=== PATIENT | male | born 1980 ===

== ENCOUNTER 2017-03-13 12:48 | Observation (INO) | payer OTHER ==
[2017-03-13] MEDS ORDERED: Iohexol 240 (50 ml) PO STA (13:26)
[2017-03-13] MEDS ORDERED: Sodium Chloride 0.9% 1,000 ML IV STA (13:31)
[2017-03-13] MEDS ORDERED: Iohexol 240 (50 ml) ONE (13:35)
--- NOTE | 2017-03-13 13:49 | ED PDOC ---
HPI: Abdomen Time Seen by Provider: 03/13/17 13:04 Chief Complaint (Nursing): Abdominal Pain Chief Complaint (Provider): Abdominal Pain History Per: Patient History/Exam Limitations: no limitations Outside of [place] travel?: No Current Symptoms Are (Timing): Still Present Additional Complaint(s): Efrain Vaughan, a 36 year old female, presenting with abdominal pain x1 month. The patient reports that he had bloody diarrhea 2 weeks ago but that has resolved. The patient states that he felt a subjective fever that has also. Denies current nausea and vomiting. He further states that he was seen at [facility] 2 weeks ago, he says he was sent for a H-pylori test but his matt care ran out so he came here instead. Past Medical History Reviewed: Historical Data, Nursing Documentation, Vital Signs Vital Signs: Last Vital Signs Temp 98.0 F 03/13/17 19:21 Pulse 72 03/13/17 19:21 Resp 16 03/13/17 19:21 BP 130/71 03/13/17 19:21 Pulse Ox 100 03/13/17 19:21 - Medical History PMH: No Chronic Diseases - Family History Family History: States: Unknown Family Hx - Social History Current smoker - smoking cessation education provided: No Alcohol: None - Home Medications Home Medications: Ambulatory Orders Medication Instructions Recorded Ciprofloxacin HCl [Cipro] 500 mg PO BID #20 tab 03/13/17 Dicyclomine [Dicyclomine HCl] 10 mg PO Q8 #10 cap 03/13/17 Metronidazole [Flagyl] 500 mg PO TID #30 tablet 03/13/17 - Allergies Allergies/Adverse Reactions: Allergies Allergy/AdvReac Type Severity Reaction Status Date / Time Penicillins AdvReac ANAPHYLAXIS Verified 03/13/17 12:57 Review of Systems ROS Statement: Except As Marked, All Systems Reviewed And Found Negative Constitutional: Negative for: Fever Gastrointestinal: Positive for: Abdominal Pain, Diarrhea. Negative for: Nausea , Vomiting Physical Exam - Reviewed Nursing Documentation Reviewed: Yes Vital Signs Reviewed: Yes - Physical Exam Appears: Positive for: Non-toxic, No Acute Distress Head Exam: Positive for: ATRAUMATIC, NORMAL INSPECTION, NORMOCEPHALIC Skin: Positive for: Normal Color, Warm, Dry Eye Exam: Positive for: Normal appearance, EOMI, PERRL ENT: Positive for: Normal ENT Inspection Neck: Positive for: Normal, Painless ROM, Supple Cardiovascular/Chest: Positive for: Regular Rate, Rhythm, Chest Non Tender. Negative for: Tachycardia Respiratory: Positive for: Normal Breath Sounds. Negative for: Wheezing, Respiratory Distress Gastrointestinal/Abdominal: Positive for: Bowel Sounds, Soft, Tenderness ( Generalized tenderness mostly in left upper quadrant.) Back: Positive for: Normal Inspection Extremity: Positive for: Normal ROM. Negative for: Tenderness, Deformity, Swelling Neurologic/Psych: Positive for: Alert, Oriented, Gait - Laboratory Results Result Diagrams: 03/13/17 12:30 03/13/17 12:30 - ECG O2 Sat by Pulse Oximetry: 98 (RA) Pulse Ox Interpretation: Normal - CT Scan/US CT abd/pelvis Other Rad Studies (CT/US): Radiology Report Reviewed (Hepatomegaly. Moderate fatty hepatic infiltration. Questionable mild localized enteritis involving 1 or 2 loops of proximal. Diverticulosis. Mild diverticulitis not excluded. There are few colonic diverticula diverticula along the distal sigmoid with some mild wall thickening and hazy appearance of the adjacent mesenteric. Findings also suggest a mild diverticulitis as well.) Medical Decision Making Medical Decision Makin:04 Initial Impression: 36 year old female presenting with abdominal pain Initial Plan: * CT ABD&PELVI PO & IV contrast * Comp Metabolic Panel * Udip * CBC * PTT * Prothrombin time * NS 1000mls IV 1000mls/hr * Omnipaque 50ml PO * Admit 13:30 * Urinalysis * Reevaluation Scribe Attestation Documented by Mirna Whittaker acting as a scribe for Kim Fuentes MD. Provider Attestation: All medical record entries made by the Scribe were at my direction and personally dictated by me. I have reviewed the chart and agree that the record accurately reflects my personal performance of the history, physical exam, medical decision making, and the department course for this patient. I have also personally directed, reviewed, and agree with the discharge instructions and disposition. Disposition - Clinical Impression Clinical Impression: Diverticulitis - Disposition Disposition Time: 19:11 Condition: STABLE
[2017-03-13 13:50] LABS: BASO % 0.5 % (0.0-2.0); EOS # 0.1 K/uL (0.0-0.7); EOS % 1.3 % (0.0-4.0); HEMATOCRIT 45.6 % (35.0-51.0); LYMPH # 1.5 K/uL (1.0-4.3); LYMPH % 29.1 % (20.0-40.0); MEAN CELL VOLUME 83.8 fl (80.0-94.0); MEAN CORPUSCULAR HEMOGLOBIN 28.2 pg (27.0-31.0); MEAN CORPUSCULAR HGB CONC 33.6 g/dL (33.0-37.0); MEAN PLATELET VOLUME 8.1 fl (7.2-11.7); MONO # 0.4 K/uL (0.0-0.8); MONO % 6.6 % (0.0-10.0); NEUT # 3.3 K/uL (1.8-7.0); NEUT % 62.5 % (50.0-75.0); RED CELL DISTRIBUTION WIDTH 13.2 % (11.5-14.5); WHITE BLOOD COUNT 5.3 K/uL (4.8-10.8)
[2017-03-13 13:56] LABS: ALB/GLOB RATIO 1.4 (1.0-2.1); ALKALINE PHOSPHATASE 79 U/L (38-126); ALT/SGPT 82 U/L (21-72); AST/SGOT 32 U/L (17-59); BILIRUBIN,TOTAL 0.6 mg/dl (0.2-1.3); BLOOD UREA NITROGEN 12 mg/dl (9-20); CALCIUM 9.1 mg/dL (8.4-10.2); CARBON DIOXIDE 24 mmol/L (22-30); CHLORIDE 106 mmol/L (98-107); GFR AFRICAN-AMERICAN > 60; GLUCOSE,RANDOM 97 mg/dL (75-110); POTASSIUM 4.1 MMOL/L (3.6-5.0); SODIUM 141 mmol/l (132-148); TOTAL PROTEIN 7.9 G/DL (6.3-8.2)
[2017-03-13 13:57] LABS: RBC URINE 3 /hpf (0-3); URINE BACTERIA RARE (<OCC); URINE BILIRUBIN NEGATIVE (NEGATIVE); URINE BLOOD NEGATIVE (NEGATIVE); URINE COLOR YELLOW (YELLOW); URINE GLUCOSE (UA) NEG (Normal); URINE KETONE NEGATIVE (NEGATIVE); URINE LEUKOCYTE ESTERASE NEG Leu/uL (Negative); URINE PROTEIN NEGATIVE (NEGATIVE); URINE UROBILINOGEN 0.2-1.0 mg/dL (0.2-1.0); WBC URINE < 1 /hpf (0-5)
[2017-03-13 14:12] LABS: PARTIAL THROMBOPLASTIN TIME 31.7 Seconds (25.6-37.1)
--- NOTE | 2017-03-13 18:31 | CT ---
PROCEDURE: CT abdomen pelvis dated 03/13/2017. HISTORY: Chronic diarrhea COMPARISON: No prior TECHNIQUE: Contiguous axial images of the abdomen and pelvis. Oral contrast was administered. No IV contrast given. Coronal and Sagittal reformats generated. Radiation dose: Total exam DLP = 860.3 mGy-cm. This CT exam was performed using one or more of the following dose reduction techniques: Automated exposure control, adjustment of the mA and/or kV according to patient size, and/or use of iterative reconstruction technique. FINDINGS: LOWER THORAX: Lung bases clear. No infiltrate effusion or basilar pneumothorax. Tiny hiatal hernia. Heart size within range of normal. LIVER: Liver is mobile on mildly enlarged measuring nearly 19 cm in CC dimension. Mild to moderate fatty hepatic infiltration. No obvious hepatic mass or collection seen on this exam. Portal and splenic veins are opacified. . GALLBLADDER AND BILE DUCTS: Gallbladder is physiologically distended. No evidence of intraluminal gallbladder calculi. PANCREAS: The pancreas appears grossly unremarkable without mass collection or calcification. No significant pancreatic ductal dilatation. SPLEEN: Spleen exhibits normal size and attenuation. ADRENALS: No adrenal lesions. KIDNEYS AND URETERS: Kidneys demonstrate symmetric nephrograms. No evidence of nephrolithiasis or hydronephrosis. No obvious renal mass or collection. BLADDER: Urinary bladder is incompletely distended which may account for slight thick-walled appearance. Muscular hypertrophy may contribute. REPRODUCTIVE: Prostate gland measures approximately 4.4 cm in transverse dimension. APPENDIX: Normal-appearing appendix best seen on coronal image number [id number]. BOWEL: Evaluation of the bowel is somewhat limited due to incomplete opacification. The stomach is incompletely distended which presumably accounts for slight thick-walled appearance. Gastritis not excluded. Visualized loops of small bowel exhibit normal contour and caliber however there is some mild wall thickening of a few loops of proximal small bowel in the upper/mid and left abdomen that contain fluid. The possibility of a mild localized enteritis not excluded. Clinical correlation recommended. No evidence of acute mechanical bowel obstruction. Oral contrast material is present within the colon to the level of the proximal descending colon. . There are few colonic diverticula along the sigmoid colon with mild wall thickening in hazy appearance of the adjacent mesenteric. Findings also suggest concomitant mild diverticulitis. PERITONEUM: Unremarkable. No fluid collection. No free air. Tiny fat containing left inguinal hernia. LYMPH NODES: Unremarkable. No enlarged lymph nodes. VASCULATURE: Unremarkable. No aortic aneurysm. BONES: Minor degenerative spondylosis involving the lower thoracic and lumbar spine. OTHER FINDINGS: None. IMPRESSION: Hepatomegaly. Moderate fatty hepatic infiltration. Questionable mild localized enteritis involving 1 or 2 loops of proximal Diverticulosis. Mild diverticulitis not excluded. There are few colonic diverticula diverticula along the distal sigmoid with some mild wall thickening and hazy appearance of the adjacent mesenteric. Findings also suggest a mild diverticulitis as well.
--- NOTE | 2017-03-13 19:10 | ED PDOC ---
- Laboratory Results Result Diagrams: 03/13/17 12:30 03/13/17 12:30 - ECG O2 Sat by Pulse Oximetry: 98 (RA) Disposition - Clinical Impression Clinical Impression: Diverticulitis - POA Present On Arrival: None - Disposition Disposition: Routine/Home Disposition Time: 19:10 Condition: FAIR
[2017-03-13 19:22] VITALS: BP 130/71; PULSE 72; RESP 16; TEMP 98
[2017-03-22 15:42] VITALS: O2SAT 98
== END 2017-03-13 19:22 | disposition home or self-care (01) ==
LOC: H.ER 12:48 → H.EROBSV 13:30
PROVIDERS: ADMIT Emergency Medicine; ATTEND Emergency Medicine
DX: K57.92 Diverticulitis of intestine, part unspecified, without perforation or abscess without bleeding (principal)
CPT/HCPCS: 74177; 80053; 81003; 85025; 85610; 85730; 99282; G0378; J7040; Q9966

== ENCOUNTER 2017-06-30 15:05 | Emergency (ER) | payer OTHER ==
[2017-06-30 15:11] VITALS: BP 138/83; PULSE 93; RESP 16; TEMP 98.1; O2SAT 96
--- NOTE | 2017-06-30 16:56 | ED PDOC ---
Lower Extremity Pain/Injury Time Seen by Provider: 06/30/17 15:31 Chief Complaint (Nursing): Lower Extremity Problem/Injury Chief Complaint (Provider): Right foot pain History Per: Patient History/Exam Limitations: no limitations Onset/Duration Of Symptoms: Days Current Symptoms Are (Timing): Still Present Additional History Per: Patient Additional Complaint(s): Patient presents today with complaints of right foot pain, present for the past week, starting after a heavy set man stepped on the patient's right foot. He denies any numbness or tingling to the extremity. Patient states he has been able to ambulate but has pain while moving. He offers no other medical complaints. Past Medical History Reviewed: Historical Data, Nursing Documentation, Vital Signs Vital Signs: Last Vital Signs Temp 98.1 F 06/30/17 15:09 Pulse 93 H 06/30/17 15:09 Resp 16 06/30/17 15:09 BP 138/83 06/30/17 15:09 Pulse Ox 96 06/30/17 15:09 - Medical History PMH: No Chronic Diseases - Surgical History Surgical History: No Surg Hx - Family History Family History: States: No Known Family Hx - Home Medications Home Medications: Ambulatory Orders Medication Instructions Recorded Ciprofloxacin HCl [Cipro] 500 mg PO BID #20 tab 03/13/17 Dicyclomine [Dicyclomine HCl] 10 mg PO Q8 #10 cap 03/13/17 Metronidazole [Flagyl] 500 mg PO TID #30 tablet 03/13/17 Naproxen [Naprosyn] 500 mg PO BID PRN #30 tab 06/30/17 - Allergies Allergies/Adverse Reactions: Allergies Allergy/AdvReac Type Severity Reaction Status Date / Time Penicillins AdvReac ANAPHYLAXIS Verified 03/13/17 12:57 Review of Systems ROS Statement: Except As Marked, All Systems Reviewed And Found Negative Musculoskeletal: Positive for: Foot Pain Neurological: Negative for: Weakness, Numbness Physical Exam - Reviewed Nursing Documentation Reviewed: Yes Vital Signs Reviewed: Yes - Physical Exam Appears: Positive for: Non-toxic, No Acute Distress Neck: Positive for: Supple Respiratory: Negative for: Respiratory Distress Pulses-Dorsalis Pedis (R): 2+ Extremity: Positive for: Tenderness (tenderness to dorsum of right foot), Capillary Refill (<2 seconds). Negative for: Deformity, Swelling Neurologic/Psych: Positive for: Alert, Oriented - ECG O2 Sat by Pulse Oximetry: 96 (RA) Pulse Ox Interpretation: Normal - Radiology X-Ray: Interpreted by Me (Foot x-ray) X-Ray Interpretation: No Acute Disease Medical Decision Making Medical Decision Making: Time: 1547 Impression: Right foot injury Plan: -- XR Right foot Reassess Scribe Attestation: Documented by Arabella Hoyt acting as a scribe for CRISTOFER Vazquez Provider Attestation: All medical record entries made by the Scribe were at my direction and personally dictated by me. I have reviewed the chart and agree that the record accurately reflects my personal performance of the history, physical exam, medical decision making, and the department course for this patient. I have also personally directed, reviewed, and agree with the discharge instructions and disposition. Disposition - Clinical Impression Clinical Impression: Foot contusion - Patient ED Disposition Is Patient to be Admitted: No - Disposition Referrals: Podiatry Clinic [Outside] Disposition: Routine/Home Disposition Time: 19:30 Condition: STABLE Prescriptions: Naproxen [Naprosyn] 500 mg PO BID PRN #30 tab PRN Reason: Pain Instructions: Crutch Instructions (ED), Contusion in Adults (ED), RICE Therapy (ED) Forms: [employer] ([place]ahamian), [facility] ED School/Work Excuse
--- NOTE | 2017-06-30 17:08 | RAD ---
PROCEDURE: Right Foot Radiographs. HISTORY: trauma COMPARISON: No prior study available for comparison FINDINGS: BONES: No acute displaced fracture nor dislocation. The osseous structures appear intact. JOINTS: Moderate hallux valgus deformity with mild overgrowth of the head of the 1st metatarsal and mild DJD 1st MTP joint. SOFT TISSUES: Normal. OTHER FINDINGS: None. IMPRESSION: No acute fractures.
== END 2017-06-30 18:50 | disposition home or self-care (01) ==
LOC: H.ER 15:05
DX: S90.31XA Contusion of right foot, initial encounter (principal); W50.0XXA Accidental hit or strike by another person, initial encounter; Y92.89 Other specified places as the place of occurrence of the external cause; Z88.0 Allergy status to penicillin